=== PATIENT | male | born 2000 | race Caucasian/White ===

== ENCOUNTER → 2023-05-18 | Outpatient (CLI) | payer OTHER ==
--- NOTE | 2023-05-18 09:36 | XR ---
EXAMINATION TYPE: XR lumbosacral spine min 4V DATE OF EXAM: 05/18/2023 CLINICAL HISTORY: pain COMPARISON: NONE TECHNIQUE: Frontal, lateral, and oblique images of the lumbar spine are obtained. FINDINGS: There are 5 lumbar type vertebral bodies identified. The lumbar spine shows satisfactory alignment without evidence of acute fracture or dislocation. Vertebral body heights are within normal limits. Disc spaces are well preserved. The overlying soft tissue appears unremarkable. IMPRESSION: No acute fracture or dislocation is seen in the lumbar spine.ICD 10 NO FRACTURE, INITIAL EVALUATION
== END | disposition home or self-care (01) ==
LOC: RADXRYALE 09:00
PROVIDERS: ATTEND Physician Assistant Medical
DX: M54.50 Low back pain, unspecified (principal); W01.0XXD Fall on same level from slipping, tripping and stumbling without subsequent striking against object, subsequent encounter
CPT/HCPCS: 72110

== ENCOUNTER → 2023-12-01 | Outpatient (CLI) | payer OTHER ==
--- NOTE | 2023-12-03 09:22 | XR ---
EXAMINATION TYPE: XR chest 2V DATE OF EXAM: 12/01/2023 COMPARISON: None HISTORY: 23-year-old male shortness of breath and cough, [id number] TECHNIQUE: Frontal and lateral views FINDINGS: Hazy densities related to large patient body habitus. Heart size is accentuated, likely upper limits of normal. Interstitial density and peribronchial cuffing without consolidation or pleural effusion. IMPRESSION: Peribronchial cuffing suggests bronchitis or chronic asthma. No focal infiltrates seen.
== END | disposition home or self-care (01) ==
LOC: RADXRYALE 16:15
PROVIDERS: ATTEND Physician Assistant Medical
DX: R05.9 Cough, unspecified (principal); R06.02 Shortness of breath
CPT/HCPCS: 71046

== ENCOUNTER → 2023-12-10 | Outpatient (CLI) | payer OTHER ==
--- NOTE | 2023-12-10 22:04 | CA ---
Transthoracic Echo Report Name: Fabiano Gastelum Age: 23 Gender: M : 2000 Exam Date: 12/10/2023 13:38 Exam Location: [facility] Ht (in): 71 Wt (lb): 400 Ordering Physician: Tom Guidry DO Attending/Referring Phys: Substation Supervisor Luli Conteh RCS Procedure CPT: Indications: R03.0 ELEVATED BP R06.02 SOB Cardiac Hx: Technical Quality: Technically difficult study Contrast 1: Definity Total Dose (mL): 4 Contrast 2: Total Dose (mL): MEASUREMENTS (Male / Female) Normal Values 2D ECHO LVOT Diameter 2.9 cm LV Diastolic Volume MOD BP 117.3 cm??? 67 - 155 / 56 - 104 cm??? LV Systolic Volume MOD BP 42.2 cm??? 22 - 58 / 19 - 49 cm??? LV Ejection Fraction MOD BP 64.0 % >= 55 % LV Cardiac Index MOD BP 1926.1 cm???/min???m??? LV Diastolic Volume MOD 4C 134.2 cm??? LV Systolic Volume MOD 4C 50.6 cm??? LV Ejection Fraction MOD 4C 62.3 % LV Cardiac Index MOD 4C 2144.0 cm???/min???m??? LV Diastolic Length 4C 8.4 cm LV Systolic Length 4C 7.4 cm LV Diastolic Volume MOD 2C 100.8 cm??? LV Systolic Volume MOD 2C 33.4 cm??? LV Ejection Fraction MOD 2C 66.8 % LV Cardiac Index MOD 2C 1727.4 cm???/min???m??? LV Diastolic Length 2C 8.2 cm LV Systolic Length 2C 7.0 cm LA Volume 37.6 cm??? 18 - 58 / 22 - 52 cm??? LA Volume Index 12.1 cm???/m??? 16 - 28 cm???/m??? DOPPLER AV Peak Velocity 98.0 cm/s AV Peak Gradient 3.8 mmHg AV Mean Velocity 70.6 cm/s AV Mean Gradient 2.2 mmHg AV Velocity Time Integral 19.5 cm LVOT Peak Velocity 90.9 cm/s LVOT Peak Gradient 3.3 mmHg LVOT Velocity Time Integral 17.1 cm LVOT Stroke Volume 113.6 cm??? LVOT Stroke Volume Index 40.1 ml/m??? LVOT Cardiac Index 2914.8 cm???/min???m??? AV Area Cont Eq vti 5.8 cm??? AV Area Cont Eq pk 6.2 cm??? MV Area PHT 5.4 cm??? Mitral E Point Velocity 56.7 cm/s Mitral A Point Velocity 43.9 cm/s Mitral E to A Ratio 1.3 MV Deceleration Time 140.0 ms PV Peak Velocity 90.4 cm/s PV Peak Gradient 3.3 mmHg FINDINGS Left Ventricle Left ventricular ejection fraction is estimated at 60-65 %. Left ventricular cavity size normal. No obvious regional wall motion abnormalities. Right Ventricle Normal right ventricular size and function. Unable to estimate right ventricular systolic function. Right Atrium Normal right atrial size. Left Atrium Normal left atrial size. Mitral Valve Structurally normal mitral valve. No mitral stenosis, regurgitation or prolapse. Aortic Valve Aortic valve not well visualized. No aortic valve stenosis or regurgitation. Tricuspid Valve Structurally normal tricuspid valve. No tricuspid stenosis, regurgitation or prolapse. Pulmonic Valve Pulmonic valve not well visualized. No pulmonic regurgitation. No pulmonic stenosis. Pericardium No pericardial effusion. Aorta Aortic annulus normal. Ascending aorta not well visualized. CONCLUSIONS Technically difficult study. Left ventricular ejection fraction is estimated at 60-65 %. No obvious regional wall motion abnormalities. Normal right ventricular size and function. No significant valvular dysfunction Previewed by: Dr Riccardo Latham (Electronically Signed) Final Date: 10 December 2023 22:03
== END | disposition home or self-care (01) ==
LOC: RADECHMAIN 13:06
PROVIDERS: ATTEND Family Medicine
DX: R03.0 Elevated blood-pressure reading, without diagnosis of hypertension (principal); R06.02 Shortness of breath
CPT/HCPCS: 93306; Q9957

== ENCOUNTER → 2024-08-14 | Outpatient (CLI) | payer OTHER ==
--- NOTE | 2024-08-15 11:25 | XR ---
EXAMINATION TYPE: XR abdomen 2V DATE OF EXAM: 08/14/2024 3:46 PM COMPARISON: None. CLINICAL INDICATION: Male, 23 years old with history of [id number] RLQ PAIN, , FINDINGS: A single borderline distended small bowel loop right paramedian mid abdomen measuring 3.5 c m. No other dilated small bowel loops. No differential air-fluid levels. Minimal stool within the rig ht side of the abdomen. No evidence for free intraperitoneal air. Exam limitations due to large body habitus and underpenetration. IMPRESSION: 1. Large body habitus limiting assessment. 2. Overall nonspecific bowel gas pattern with a single mildly distended small bowel loop in the right mid abdomen measuring 3.5 cm. This may be transient or could reflect a mild regional ileus or enteri tis. 3. Minimal stool in the right side of the abdomen. No free air. [facility], , 08/15/2024 11:23 AM
== END | disposition home or self-care (01) ==
LOC: RADXRYALE 15:03
PROVIDERS: ATTEND Physician Assistant Medical
DX: R14.0 Abdominal distension (gaseous) (principal)
CPT/HCPCS: 74019